=== PATIENT | male | born 1995 | race African-American/Black ===

== ENCOUNTER 2022-02-19 00:24 | Emergency (ER) | payer SELFPAY ==
[~2022-02-19] VITALS: Ht 182.9 cm; Wt 103.9 kg
[2022-02-19 00:39] VITALS: BP 120/85
[2022-02-19] MEDS ORDERED: IBUPROFEN 600MG TABLET PO STA (06:12)
[2022-02-19] MEDS ORDERED: IBUP-2029 MT (07:10)
== END 2022-02-19 07:29 | disposition home or self-care (01) ==
LOC: ER 00:24
DX: R51.9 Headache, unspecified (principal)
CPT/HCPCS: 93005; 99284